=== PATIENT | male | born 1995 | race Caucasian/White ===

== ENCOUNTER 2019-03-12 13:56 | Emergency (ER) | payer OTHER, BC ==
[~2019-03-12] VITALS: Ht 187.9 cm; Wt 58.4 kg
--- NOTE | 2019-03-12 14:37 | Diagnostic Imaging Report ---
PROCEDURE: CT abdomen and pelvis without contrast. TECHNIQUE: Multiple contiguous axial images were obtained through the abdomen and pelvis without the use of intravenous contrast. Auto Exposure Controls were utilized during the CT exam to meet ALARA standards for radiation dose reduction. INDICATION: Bilateral flank pain, worse on the left as well as hematuria. COMPARISON: No prior studies are available for comparison. FINDINGS: The lung bases are clear. Liver and gallbladder are unremarkable. No biliary ductal dilatation is seen. The pancreas and spleen are unremarkable. No adrenal mass is detected. No renal calculi are seen. No significant hydronephrosis is identified. No definite ureteral or bladder calculi are identified. Calcification in the left pelvis likely represents a phlebolith. Aorta is non-aneurysmal. Small and large bowel loops are normal in caliber. There is no obstruction. There is no free fluid or fluid collection. Bony structures are nonacute. Appendix is difficult to visualize, but no inflammatory changes in the right lower quadrant are identified. IMPRESSION: 1. No evidence of urinary tract calculi or obstruction. 2. No definite CT evidence of acute appendicitis. Dictated by: Dictated on workstation # [id number]
[2019-03-12] MEDS ORDERED: NS IV 1000 ML 1,000 ML IV SCH (14:45)
[2019-03-12] MEDS ORDERED: KETOROLAC 30 MG/ML VIAL IVP ONE (14:45)
[2019-03-12] MEDS ORDERED: ONDANSETRON 4 MG/2 ML (SDV) Z0FRAN IVP ONE (14:45)
[2019-03-12 14:50] LABS: BASOPHILS % (AUTO) 0 % (0-10); EOSINOPHILS # (AUTO) 0.1 10^3/uL (0.0-0.3); EOSINOPHILS % (AUTO) 1 % (0-10); HEMATOCRIT 46 % (40-54); HEMOGLOBIN 15.8 G/DL (13.3-17.7); LYMPHOCYTES # (AUTO) 2.4 X 10^3 (1.0-4.0); LYMPHOCYTES % (AUTO) 27 % (12-44); MEAN CORPUSCULAR HEMOGLOBIN 30 PG (25-34); MEAN CORPUSCULAR HGB CONC 34 G/DL (32-36); MEAN CORPUSCULAR VOLUME 88 FL (80-99); MEAN PLATELET VOLUME 10.2 FL (7.4-10.4); MONOCYTES # (AUTO) 0.9 X 10^3 (0.0-1.0); MONOCYTES % (AUTO) 11 % (0-12); NEUTROPHILS # (AUTO) 5.3 X 10^3 (1.8-7.8); NEUTROPHILS % (AUTO) 61 % (42-75); PLATELET COUNT 268 10^3/uL (130-400); RED CELL DISTRIBUTION WIDTH 13.1 % (10.0-14.5); WHITE BLOOD COUNT 8.7 10^3/uL (4.3-11.0)
[2019-03-12 14:53] LABS: BILIRUBIN,URINE NEGATIVE (NEGATIVE); CLARITY,URINE CLEAR; COLOR,URINE YELLOW; GLUCOSE, URINE (UA) NEGATIVE (NEGATIVE); KETONES,URINE NEGATIVE (NEGATIVE); LEUKOCYTE ESTERASE ,URINE NEGATIVE (NEGATIVE); NITRITE,URINE NEGATIVE (NEGATIVE); PROTEIN,URINE NEGATIVE (NEGATIVE)
--- NOTE | 2019-03-12 14:53 | ED GI ---
General Chief Complaint: - Urinary Stated Complaint: HEMATURIA; MATHEUS FLANK PAIN Nursing Triage Note: Patient reports he has a history of kidney stones, states he passed several this morning, reports he now has blood in his urine. Reports back pain for 2 weeks. Sepsis Screen: No Definite Risk Source of Information: Patient Exam Limitations: No Limitations History of Present Illness Date Seen by Provider: Mar 12, 2019 Time Seen by Provider: 14:30 Initial Comments The patient is a pleasant 23-year-old male who presents for evaluation of bilat eral lower back pain as well as gross hematuria. He states that his pain has been present for the last 2 weeks or so. He states that he has had several kidney stones in the past that this feels the same. He denies fevers or chills, vomiting, chest pain or shortness of breath, penile or testicular pain, recent trauma, dizziness or syncope. He is alert and oriented 4, calm, and appears to be in no distress this time. Timing/Duration: Other (2 weeks, worse today) Severity/Quality: Moderate Location: Flank Radiation: No Radiation Activities at Onset: None Associated Symptoms: No Fever/Chills; Nausea/Vomiting (nausea only) Allergies and Home Medications Allergies Coded Allergies: No Known Drug Allergies (Unverified , 03/12/19) Patient Home Medication List Home Medication List Reviewed: Yes Review of Systems Review of Systems Constitutional: no symptoms reported EENTM: No Symptoms Reported Respiratory: No Symptoms Reported Cardiovascular: No Symptoms Reported Gastrointestinal: Abdominal Pain, Nausea Genitourinary: Flank Pain, Hematuria Musculoskeletal: no symptoms reported Skin: no symptoms reported Psychiatric/Neurological: No Symptoms Reported Endocrine: No Symptoms Reported Hematologic/Lymphatic: No Symptoms Reported All Other Systems Reviewed Negative Unless Noted: Yes Past Mxghwlb-Jqynod-Sgxebo Hx Past Med/Social Hx: Reviewed Nursing Past Med/Soc Hx Patient Social History Alcohol Use: Denies Use Recreational Drug Use: No Smoking Status: Never a Smoker 2nd Hand Smoke Exposure: No Recent Foreign Travel: No Contact w/Someone Who Travel: No Recent Infectious Disease Expo: No Recent Hopitalizations: No Physical Abuse: No Sexual Abuse: No Mistreated: No Fear: No Seasonal Allergies Seasonal Allergies: No Past Medical History Surgeries: Yes Orthopedic Respiratory: No Cardiac: No Neurological: No Genitourinary: Yes Kidney Stones Gastrointestinal: No Musculoskeletal: No Endocrine: No HEENT: No Cancer: No Psychosocial: No Integumentary: No Physical Exam Vital Signs Vital Signs - First Documented 03/12/19 14:10 Temp 37.4 Pulse 64 Resp 14 B/P (MAP) 144/89 (107) Pulse Ox 99 O2 Delivery Room Air Capillary Refill : Less Than 3 Seconds Height/Weight/BMI Height: '" Weight: lbs. oz. kg; 16.00 BMI Method: General Appearance: WD/WN, no apparent distress HEENT: PERRL/EOMI, TMs normal Neck: non-tender, full range of motion, supple Respiratory: chest non-tender, lungs clear, normal breath sounds, no respiratory distress, no accessory muscle use Cardiovascular: regular rate, rhythm, no edema, no JVD Gastrointestinal: normal bowel sounds, non tender, soft Extremities: normal range of motion, non-tender, no pedal edema Back: normal inspection, no vertebral tenderness, CVA tenderness (R), CVA tenderness (L) Neurologic/Psychiatric: [place] II-XII nml as tested, no motor/sensory deficits, alert, normal mood/affect, oriented x 3 Skin: normal color, warm/dry Progress/Results/Core Measures Results/Orders Lab Results Laboratory Tests Test 03/12/19 14:10 03/12/19 14:28 Range/Units Urine Color YELLOW Urine Clarity CLEAR Urine pH 7.0 5-9 Urine Specific [place] 1.020 1.016-1.022 Urine Protein NEGATIVE NEGATIVE Urine Glucose (UA) NEGATIVE NEGATIVE Urine Ketones NEGATIVE NEGATIVE Urine Nitrite NEGATIVE NEGATIVE Urine Bilirubin NEGATIVE NEGATIVE Urine Urobilinogen 0.2 < = 1.0 MG/DL Urine Leukocyte Esterase NEGATIVE NEGATIVE Urine RBC (Auto) NEGATIVE NEGATIVE Urine RBC NONE /HPF Urine WBC NONE /HPF Urine Squamous Epithelial Cells RARE /HPF Urine Crystals NONE /LPF Urine Bacteria NEGATIVE /HPF Urine Casts NONE /LPF Urine Mucus NONE /LPF Urine Culture Indicated NO White Blood Count 8.7 4.3-11.0 10^3/uL Red Blood Count 5.26 4.35-5.85 10^6/uL Hemoglobin 15.8 13.3-17.7 G/DL Hematocrit 46 40-54 % Mean Corpuscular Volume 88 80-99 FL Mean Corpuscular Hemoglobin 30 25-34 PG Mean Corpuscular Hemoglobin Concent 34 32-36 G/DL Red Cell Distribution Width 13.1 10.0-14.5 % Platelet Count 268 130-400 10^3/uL Mean Platelet Volume 10.2 7.4-10.4 FL Neutrophils (%) (Auto) 61 42-75 % Lymphocytes (%) (Auto) 27 12-44 % Monocytes (%) (Auto) 11 0-12 % Eosinophils (%) (Auto) 1 0-10 % Basophils (%) (Auto) 0 0-10 % Neutrophils # (Auto) 5.3 1.8-7.8 X 10^3 Lymphocytes # (Auto) 2.4 1.0-4.0 X 10^3 Monocytes # (Auto) 0.9 0.0-1.0 X 10^3 Eosinophils # (Auto) 0.1 0.0-0.3 10^3/uL Basophils # (Auto) 0.0 0.0-0.1 10^3/uL Sodium Level 141 135-145 MMOL/L Potassium Level 3.7 3.6-5.0 MMOL/L Chloride Level 103 98-107 MMOL/L Carbon Dioxide Level 24 21-32 MMOL/L Anion Gap 14 5-14 MMOL/L Blood Urea Nitrogen 7 7-18 MG/DL Creatinine 0.80 0.60-1.30 MG/DL Estimat Glomerular Filtration Rate > 60 BUN/Creatinine Ratio 9 Glucose Level 87 70-105 MG/DL Calcium Level 9.8 8.5-10.1 MG/DL Corrected Calcium 8.5-10.1 MG/DL Total Bilirubin 0.6 0.1-1.0 MG/DL Aspartate Amino Transf (AST/SGOT) 19 5-34 U/L Alanine Aminotransferase (ALT/SGPT) 16 0-55 U/L Alkaline Phosphatase 89 40-136 U/L Total Protein 7.5 6.4-8.2 GM/DL Albumin 4.8 H 3.2-4.5 GM/DL My Orders Orders - LILLI MORALES DO Comprehensive Metabolic Panel (03/12/19 14:12) Ua Culture If Indicated (03/12/19 14:12) Ed Iv/Invasive Line Start (03/12/19 14:12) Cbc With Automated Diff (03/12/19 14:12) Ct Abdomen/Pelvis Wo (03/12/19 14:12) Ns Iv 1000 Ml (Sodium Chloride 0.9%) (03/12/19 14:45) Ondansetron Injection (Zofran Injectio (03/12/19 14:45) Ketorolac Injection (Toradol Injection) (03/12/19 14:45) Medications Given in ED Current Medications Medications Dose Ordered Sig/Saman Route Start Time Stop Time Status Last Admin Dose Admin Ketorolac Tromethamine 30 mg ONCE ONCE IVP 03/12/19 14:45 03/12/19 14:46 DC 03/12/19 14:57 30 MG Ondansetron HCl 4 mg ONCE ONCE IVP 03/12/19 14:45 03/12/19 14:46 DC 03/12/19 14:57 4 MG Vital Signs/I&O 03/12/19 14:10 Temp 37.4 Pulse 64 Resp 14 B/P (MAP) 144/89 (107) Pulse Ox 99 O2 Delivery Room Air Blood Pressure Mean: 107 Progress Progress Note : Progress Note @1530 - patient updated on lab and imaging results which are acutely unremarkable. It is most likely of the patient had a kidney stone which he completely passed. Workup today fails reveal any emergent pathology. The patient states that he is feeling much better and is asking to go home. Advised the patient to follow up with his PCP in the next 1-2 days and to return to the Emergency Department immediately for new or worsening symptoms. He expresses verbal understanding and agreement with the plan. Diagnostic Imaging Diagonstic Imaging: CT Comments [facility], [place] NAME: ANITA HEMPHILL Kenn [facility] REC#: [id number] PT STATUS: REG ER : 1995 PHYSICIAN: LILLI MORALES DO ADMIT DATE: 03/12/19/ER FS Draft Date of Exam:03/12/19 CT ABDOMEN/PELVIS WO PROCEDURE: CT abdomen and pelvis without contrast. TECHNIQUE: Multiple contiguous axial images were obtained through the abdomen and pelvis without the use of intravenous contrast. Auto Exposure Controls were utilized during the CT exam to meet ALARA standards for radiation dose reduction. INDICATION: Bilateral flank pain, worse on the left as well as hematuria. COMPARISON: No prior studies are available for comparison. FINDINGS: The lung bases are clear. Liver and gallbladder are unremarkable. No biliary ductal dilatation is seen. The pancreas and spleen are unremarkable. No adrenal mass is detected. No renal calculi are seen. No significant hydronephrosis is identified. No definite ureteral or bladder calculi are identified. Calcification in the left pelvis likely represents a phlebolith. Aorta is non-aneurysmal. Small and large bowel loops are normal in caliber. There is no obstruction. There is no free fluid or fluid collection. Bony structures are nonacute. Appendix is difficult to visualize, but no inflammatory changes in the right lower quadrant are identified. IMPRESSION: 1. No evidence of urinary tract calculi or obstruction. 2. No definite CT evidence of acute appendicitis. Dictated on workstation # [id number] Dict: 03/12/19 1432 Trans: 03/12/19 1437 [id number] Interpreted by: BUTCH LEUNG MD Electronically signed by: Departure Impression Primary Impression: Kidney stone Additional Impression: Flank pain Disposition: 01 HOME, SELF-CARE Condition: Stable Departure-Patient Inst. Referrals: NO,LOCAL PHYSICIAN (PCP/Family) Primary Care Physician Patient Instructions: Flank Pain, Kidney Stone Diet, Kidney Stones (DC) Add. Discharge Instructions: Follow-up with your doctor in the next 1-2 days. Return to the emergency Department immediately for new or worsening symptoms. Take the prescribed medication for nausea as needed. Scripts Ondansetron (Ondansetron Odt) 4 Mg Tab.rapdis 4 MG PO Q6H PRN for NAUSEA/VOMITING-1ST LINE for 5 Days, #20 TAB Prov: LILLI MORALES DO 03/12/19 LILLI MORALES DO Mar 12, 2019 14:53
[2019-03-12 14:54] LABS: BACTERIA,URINE NEGATIVE /HPF; SQUAMOUS EPITHELIAL CELL,UR RARE /HPF
[2019-03-12 15:16] LABS: CARBON DIOXIDE 24 MMOL/L (21-32); CHLORIDE 103 MMOL/L (98-107); POTASSIUM 3.7 MMOL/L (3.6-5.0); SODIUM 141 MMOL/L (135-145)
[2019-03-12 15:17] LABS: ALANINE AMINOTRANSFERASE 16 U/L (0-55); ALBUMIN 4.8 GM/DL (3.2-4.5); ALKALINE PHOSPHATASE 89 U/L (40-136); BILIRUBIN,TOTAL 0.6 MG/DL (0.1-1.0); BUN/CREATININE RATIO 9; CALCIUM 9.8 MG/DL (8.5-10.1); GFR ESTIMATED > 60; GLUCOSE 87 MG/DL (70-105); TOTAL PROTEIN 7.5 GM/DL (6.4-8.2)
[2019-03-12] MEDS ORDERED: ONDA4TAB11 PO (15:36)
[2019-03-12 15:52] VITALS: BP 127/68
== END 2019-03-12 15:48 | disposition home or self-care (01) ==
LOC: ER FS 13:58
DX: N20.0 Calculus of kidney (principal)
CPT/HCPCS: 36415; 74176; 80053; 81000; 85025

== ENCOUNTER → 2019-03-18 | Outpatient (CLI) | payer OTHER, BC ==
[~2019-03-18] MED LIST: ONDA4TAB11 PO
--- NOTE | 2019-03-18 14:02 | Diagnostic Imaging Report ---
PROCEDURE: CT abdomen and pelvis without contrast. TECHNIQUE: Multiple contiguous axial images were obtained through the abdomen and pelvis without the use of intravenous contrast. Auto Exposure Controls were utilized during the CT exam to meet ALARA standards for radiation dose reduction. INDICATION: Left flank pain. Comparison made with prior examination from 03/12/2019. FINDINGS: The heart size is normal. The lung bases are clear. The liver is normal in size without focal lesions. Gallbladder is unremarkable. There is no biliary ductal dilatation. Spleen is normal. Pancreas and adrenal glands are unremarkable. Kidneys are normal in appearance. There is no evidence of obstructive uropathy. The aorta is nonaneurysmal. Bowel gas pattern is nonspecific. There is no free air. There is no ascites. There are no focal inflammatory changes. The osseous structures are unremarkable. IMPRESSION: Unremarkable noncontrast CT abdomen and pelvis. Dictated by: Dictated on workstation # [id number]
== END ==
LOC: RAD FS 12:43
PROVIDERS: ATTEND Nurse Practitioner Family
DX: R10.9 Unspecified abdominal pain (principal); Z87.442 Personal history of urinary calculi
CPT/HCPCS: 74176

== ENCOUNTER 2019-11-16 00:20 | Emergency (ER) | payer BC, OTHER ==
[2019-11-16] MEDS ORDERED: ONDANSETRON 4 MG (ZOFRAN) ORAL DISSOLVE TAB ONE (00:36)
[2019-11-16] MEDS ORDERED: HYDROcodone/APAP 5 MG/325 MG (LORTAB) TAB PO STA (00:37)
[2019-11-16] MEDS ORDERED: ONDANSETRON 4 MG (ZOFRAN) ORAL DISSOLVE TAB PO STA (00:37)
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
[2019-11-16] MEDS ORDERED: NS IV 1000 ML 1,000 ML IV STA (01:54)
[2019-11-16] MEDS ORDERED: ONDANSETRON 4 MG/2 ML (SDV) Z0FRAN IVP STA (02:06)
[2019-11-16] MEDS ORDERED: fentaNYL INJECTION 100 MCG/2 ML AMP IVP STA (02:06)
[2019-11-16 02:09] LABS: BASOPHILS % (AUTO) 0 % (0-10); EOSINOPHILS % (AUTO) 0 % (0-10); HEMATOCRIT 43 % (40-54); HEMOGLOBIN 15.3 G/DL (13.3-17.7); LYMPHOCYTES % (AUTO) 5 % (12-44); MEAN CORPUSCULAR HEMOGLOBIN 31 PG (25-34); MEAN CORPUSCULAR HGB CONC 36 G/DL (32-36); MEAN CORPUSCULAR VOLUME 86 FL (80-99); MEAN PLATELET VOLUME 10.1 FL (7.4-10.4); MONOCYTES % (AUTO) 5 % (0-12); NEUTROPHILS % (AUTO) 89 % (42-75); PLATELET COUNT 284 10^3/uL (130-400); WHITE BLOOD COUNT 24.4 10^3/uL (4.3-11.0)
[2019-11-16 02:15] LABS: PROTHROMBIN TIME PATIENT 13.8 SEC (12.2-14.7)
[2019-11-16 02:23] LABS: ALANINE AMINOTRANSFERASE 19 U/L (0-55); ALBUMIN 4.9 GM/DL (3.2-4.5); ALKALINE PHOSPHATASE 74 U/L (40-136); BILIRUBIN,TOTAL 0.6 MG/DL (0.1-1.0); BUN/CREATININE RATIO 12; CALCIUM 9.8 MG/DL (8.5-10.1); CARBON DIOXIDE 24 MMOL/L (21-32); CHLORIDE 102 MMOL/L (98-107); CREATININE SERUM 0.76 MG/DL (0.60-1.30); GFR ESTIMATED > 60; GLUCOSE 111 MG/DL (70-105); POTASSIUM 4.2 MMOL/L (3.6-5.0); SODIUM 139 MMOL/L (135-145); TOTAL PROTEIN 7.5 GM/DL (6.4-8.2)
[2019-11-16 02:24] VITALS: BP 133/69
[2019-11-16 02:30] LABS: LYMPHOCYTES % (MANUAL) 11 %; MICROCYTOSIS MARKED; MONOCYTES % (MANUAL) 3 %; NEUTROPHILS % (MANUAL) 86 %; TOXIC GRANULATION/VACUOLAZATIO 4+
[2019-11-16 02:32] LABS: CLARITY,URINE CLEAR; COLOR,URINE STRAW
[2019-11-16 02:40] LABS: AMORPHOUS SEDIMENT,UR MOD AMOR PHOSPHATE /LPF; BACTERIA,URINE NEGATIVE /HPF; BILIRUBIN,URINE NEGATIVE (NEGATIVE); GLUCOSE, URINE (UA) NEGATIVE (NEGATIVE); KETONES,URINE NEGATIVE (NEGATIVE); LEUKOCYTE ESTERASE ,URINE NEGATIVE (NEGATIVE); NITRITE,URINE NEGATIVE (NEGATIVE); PROTEIN,URINE NEGATIVE (NEGATIVE)
[2019-11-16 02:41] LABS: AMPHETAMINE SCREEN, URINE NEGATIVE (NEGATIVE); BARBITURATE SCREEN URINE NEGATIVE (NEGATIVE); BENZODIAZEPINES SCREEN URINE NEGATIVE (NEGATIVE); CANNABINOID SCREEN, URINE NEGATIVE (NEGATIVE); COCAINE SCREEN URINE NEGATIVE (NEGATIVE); METHADONE STAT NEGATIVE (NEGATIVE); METHAMPHETAMINE SCREEN URINE S NEGATIVE (NEGATIVE); OPIATE SCREEN URINE NEGATIVE (NEGATIVE); OXYCODONE STAT NEGATIVE (NEGATIVE); PROPOXYPHENE STAT NEGATIVE (NEGATIVE); TRICYCLIC ANTIDEPRESSANTS SCRE NEGATIVE (NEGATIVE)
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
[2019-11-16 10:04] LABS: LYMPHOCYTES # (AUTO) 1.3 X 10^3 (1.0-4.0); MONOCYTES # (AUTO) 1.2 X 10^3 (0.0-1.0); NEUTROPHILS # (AUTO) 21.8 X 10^3 (1.8-7.8)
== END 2019-11-16 02:46 | disposition short-term general hospital (02) ==
LOC: EDUNIT# 00:20 → ER FS 00:23
DX: S02.413A LeFort III fracture, initial encounter for closed fracture (principal); S02.85XA Fracture of orbit, unspecified, initial encounter for closed fracture; S00.83XA Contusion of other part of head, initial encounter; R40.2142 Coma scale, eyes open, spontaneous, at arrival to emergency department; R40.2252 Coma scale, best verbal response, oriented, at arrival to emergency department; R40.2362 Coma scale, best motor response, obeys commands, at arrival to emergency department; Z88.6 Allergy status to analgesic agent; Y09 Assault by unspecified means
CPT/HCPCS: 36415; 70450; 70486; 72125; 80053; 80306; 81000; 85007; 85027; 85610; 85730; 99284; G0480; 80320

== ENCOUNTER 2020-10-07 12:29 | Emergency (ER) | payer SELFPAY ==
[~2020-10-07] VITALS: Ht 182.9 cm; Wt 56.7 kg
--- OUTSIDE RECORDS SUMMARY | 2020-10-07 12:34 | XMS REPORT | Clinical Summary ---
Author Author [facility] Organization [facility] Address Unknown Phone Unavailable Care Team Providers Care Dispatcher Chief Coal Slurry Name Role Phone No Pcp, Na PCP Unavailable Source Comments Some departments are not documenting in the electronic medical record. If you d o not see the information that you expected, contact Release of Information in [facility] [employer] Information Management department at [phone] for further assistan ce in locating additional records.[facility] Allergies Not on File Medications Not on file Active Problems Not on file Social History Date Tobacco Use Types Packs/Day Years Used Never Assessed Sex Assigned at Date Recorded Not on file Last Filed Vital Signs Not on file Plan of Treatment Health Maintenance Due Date Last Done Comments HPV VACCINES (1 - Male 04/17/2007 2-dose series) HIV SCREENING 04/17/2011 DTAP/TDAP VACCINES (1 - 2014 Tdap) HEPATITIS C SCREENING 2014 PHYSICAL (COMPREHENSIVE) 2014 EXAM INFLUENZA VACCINE 11/06/2020 12/04/2009 Results Not on filefrom Last 3 Months Insurance Type Payer Benefit Subscriber ID Effective Phone Address Plan / Dates Group PPO BCBS [facility] [id number] 2015- PREF CARE Present BLUE [id number] 1 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
[2020-10-07] MEDS ORDERED: FAMOTIDINE 20MG/2ML IV (PEPCID) ONE (12:50)
--- NOTE | 2020-10-07 12:51 | ED GI ---
General Chief Complaint: Abdominal/GI Problems Stated Complaint: CHEST PAIN Source of Information: Patient Exam Limitations: No Limitations History of Present Illness Date Seen by Provider: Oct 07, 2020 Time Seen by Provider: 12:40 Initial Comments 25-year-old male presents with complaint of chest pain rating to his left arm intermittently for the past 11 months. Symptoms occur spontaneously without a precipitating event last 5 to 10 minutes and resolve on their own. Patient has not seen a doctor for this problem. Also states that he had approximately 20 pound weight loss last fall, has decreased appetite. He did see his PCP in January of last year and was started on blood pressure medication, he mentioned his chest pain but says nothing else was done. He does vape, denies drug use or alcohol use. No other significant past medical history, on no other medication other blood pressure medicine. He does complain of heartburn quite often. Denies Chest pain on arrival. Allergies and Home Medications Allergies Coded Allergies: ibuprofen (Verified Allergy, Unknown, 11/16/19) Home Medications Famotidine 20 Mg Tablet, 20 MG PO BID Prescribed by: RADHA BRIGGS on 10/07/20 1326 Ondansetron 4 Mg Tab.rapdis, 4 MG PO Q6H PRN for NAUSEA/VOMITING-1ST LINE Prescribed by: LILLI MORALES on 03/12/19 1536 Patient Home Medication List Home Medication List Reviewed: Yes Review of Systems Review of Systems Constitutional: No chills, No fever, No malaise, No weakness; weight loss Respiratory: Denies Cough, Denies Shortness of Air Cardiovascular: Chest Pain (intermittent for 11 months); Denies Edema, Denies Lightheadedness, Denies Palpitations Gastrointestinal: Abdominal Pain (often has indigestion and heart burn); Denies Constipated, Denies Diarrhea; Nausea, Poor Appetite; Denies Poor Fluid Intake; Vomiting Genitourinary: No Symptoms Reported Musculoskeletal: No back pain, No joint pain Skin: No change in color, No rash Psychiatric/Neurological: Denies Numbness, Denies Paresthesia, Denies Seizure, Denies Weakness Past Nrlhkkp-Bzqxnj-Hglzyx Hx Patient Social History Tobacco Use?: No Use of E-Cig and/or Vaping dev: Yes Alcohol Use?: No Seasonal Allergies Seasonal Allergies: No Past Medical History Surgeries: Yes Orthopedic Respiratory: No Cardiac: No Neurological: No Genitourinary: Yes Kidney Stones Gastrointestinal: No Musculoskeletal: No Endocrine: No HEENT: No Cancer: No Psychosocial: No Integumentary: No Physical Exam Vital Signs Vital Signs - First Documented 10/07/20 12:40 Temp 35.5 Pulse 84 Resp 26 B/P (MAP) 161/77 (105) Pulse Ox 95 O2 Delivery Room Air Capillary Refill : Height/Weight/BMI Height: '" Weight: lbs. oz. kg; 16.00 BMI Method: General Appearance: WD/WN, no apparent distress, thin HEENT: PERRL/EOMI, normal ENT inspection Neck: non-tender, supple Respiratory: chest non-tender, lungs clear, normal breath sounds, no respiratory distress, no accessory muscle use Cardiovascular: regular rate, rhythm, no edema, no gallop, no JVD, no murmur Gastrointestinal: normal bowel sounds, non tender, soft, no organomegaly, no pulsatile mass Extremities: normal range of motion, non-tender, no pedal edema Back: normal inspection, no CVA tenderness, no vertebral tenderness Neurologic/Psychiatric: no motor/sensory deficits, alert, normal mood/affect, oriented x 3 Skin: normal color, warm/dry Progress/Results/Core Measures Results/Orders Lab Results Laboratory Tests Test 10/07/20 12:35 10/07/20 12:51 Range/Units White Blood Count 8.7 4.3-11.0 10^3/uL Red Blood Count 5.39 4.30-5.52 10^6/uL Hemoglobin 16.0 13.3-17.7 g/dL Hematocrit 47 40-54 % Mean Corpuscular Volume 87 80-99 fL Mean Corpuscular Hemoglobin 30 25-34 pg Mean Corpuscular Hemoglobin Concent 34 32-36 g/dL Red Cell Distribution Width 12.7 10.0-14.5 % Platelet Count 291 130-400 10^3/uL Mean Platelet Volume 10.2 9.0-12.2 fL Immature Granulocyte % (Auto) 0 % Neutrophils (%) (Auto) 66 42-75 % Lymphocytes (%) (Auto) 21 12-44 % Monocytes (%) (Auto) 12 0-12 % Eosinophils (%) (Auto) 0 0-10 % Basophils (%) (Auto) 0 0-10 % Neutrophils # (Auto) 5.7 1.8-7.8 X 10^3 Lymphocytes # (Auto) 1.9 1.0-4.0 X 10^3 Monocytes # (Auto) 1.0 0.0-1.0 X 10^3 Eosinophils # (Auto) 0.0 0.0-0.3 10^3/uL Basophils # (Auto) 0.0 0.0-0.1 10^3/uL Immature Granulocyte # (Auto) 0.0 0.0-0.1 10^3/uL Sodium Level 139 135-145 MMOL/L Potassium Level 4.3 3.6-5.0 MMOL/L Chloride Level 101 98-107 MMOL/L Carbon Dioxide Level 24 21-32 MMOL/L Anion Gap 14 5-14 MMOL/L Blood Urea Nitrogen 10 7-18 MG/DL Creatinine 0.89 0.60-1.30 MG/DL Estimat Glomerular Filtration Rate 105 BUN/Creatinine Ratio 11 Glucose Level 115 H 70-105 MG/DL Calcium Level 9.9 8.5-10.1 MG/DL Corrected Calcium 8.5-10.1 MG/DL Total Bilirubin 1.0 0.1-1.0 MG/DL Aspartate Amino Transf (AST/SGOT) 24 5-34 U/L Alanine Aminotransferase (ALT/SGPT) 23 0-55 U/L Alkaline Phosphatase 87 40-136 U/L Troponin I < 0.30 <0.30 NG/ML Total Protein 8.0 6.4-8.2 GM/DL Albumin 5.1 H 3.2-4.5 GM/DL Urine Color YELLOW Urine Clarity CLEAR Urine pH 7.5 5-9 Urine Specific [place] 1.010 L 1.016-1.022 Urine Protein NEGATIVE NEGATIVE Urine Glucose (UA) NEGATIVE NEGATIVE Urine Ketones NEGATIVE NEGATIVE Urine Nitrite NEGATIVE NEGATIVE Urine Bilirubin NEGATIVE NEGATIVE Urine Urobilinogen 0.2 < = 1.0 MG/DL Urine Leukocyte Esterase NEGATIVE NEGATIVE Urine RBC (Auto) NEGATIVE NEGATIVE Urine RBC NONE /HPF Urine WBC RARE /HPF Urine Squamous Epithelial Cells RARE /HPF Urine Crystals NONE /LPF Urine Bacteria NEGATIVE /HPF Urine Casts NONE /LPF Urine Mucus NEGATIVE /LPF Urine Culture Indicated NO Urine Opiates Screen NEGATIVE NEGATIVE Urine Oxycodone Screen NEGATIVE NEGATIVE Urine Methadone Screen NEGATIVE NEGATIVE Urine Propoxyphene Screen NEGATIVE NEGATIVE Urine Barbiturates Screen NEGATIVE NEGATIVE Ur Tricyclic Antidepressants Screen NEGATIVE NEGATIVE Urine Phencyclidine Screen NEGATIVE NEGATIVE Urine Amphetamines Screen NEGATIVE NEGATIVE Urine Methamphetamines Screen NEGATIVE NEGATIVE Urine Benzodiazepines Screen NEGATIVE NEGATIVE Urine Cocaine Screen NEGATIVE NEGATIVE Urine Cannabinoids Screen POSITIVE H NEGATIVE My Orders Orders - RADHA BRIGGS DO Ed Iv/Invasive Line Start (10/07/20 12:46) Cbc With Automated Diff (10/07/20 12:46) Comprehensive Metabolic Panel (10/07/20 12:46) Troponin I Fs (10/07/20 12:46) Urinalysis (10/07/20 12:46) Drug Screen Stat (Urine) (10/07/20 12:46) Chest 1 View Ap/Pa Only (10/07/20 12:46) Ekg Tracing (10/07/20 12:46) Famotidine Injection (Pepcid Injection) (10/07/20 13:00) Famotidine Injection (Pepcid Injection) (10/07/20 12:50) Medications Given in ED Current Medications Medications Dose Ordered Sig/Saman Route Start Time Stop Time Status Last Admin Dose Admin Famotidine 20 mg ONCE ONCE IVP 10/07/20 13:00 10/07/20 13:12 DC 10/07/20 12:51 20 MG Vital Signs/I&O 10/07/20 10/07/20 12:40 13:39 Temp 35.5 Pulse 84 72 Resp 26 16 B/P (MAP) 161/77 (105) 159/83 Pulse Ox 95 98 O2 Delivery Room Air Room Air Initial ECG Impression Date: Oct 07, 2020 Initial ECG Impression Time: 12:35 Initial ECG Rate: 70 Initial ECG Rhythm: Normal Sinus Initial ECG Impression: Normal Initial ECG Comparisson: No Previous ECG Available Comment [facility] Diagnostic Imaging Diagonstic Imaging: Xray Plain Films/CT/US/NM/MRI: chest Comments COMPARISON: None. FINDINGS: Single frontal view of the chest demonstrates normal heart size and pulmonary vascularity. The lungs are well aerated and clear. No large pleural effusion or pneumothorax is seen. The visualized osseous structures show no acute abnormalities. IMPRESSION: 1. No acute cardiopulmonary process. Dictated on workstation # [id number] Dict: 10/07/20 1254 Trans: 10/07/20 1255 [id number] [id number] Interpreted by: ERNIE WALLACE MD Electronically signed by: Departure Impression Primary Impression: Hematemesis Qualified Codes: K92.0 - Hematemesis Additional Impressions: Chest pain Qualified Codes: R07.9 - Chest pain, unspecified Hypertension Qualified Codes: I10 - Essential (primary) hypertension Disposition: 01 HOME, SELF-CARE Condition: Stable Departure-Patient Inst. Decision time for Depature: 13:25 Referrals: ADOLPH ARTEAGA APRN (PCP) Primary Care Physician NO,LOCAL PHYSICIAN (Family) Primary Care Physician Patient Instructions: Peptic Ulcers (DC), High Blood Pressure ED Add. Discharge Instructions: Follow up with Kamron Arteaga in 2 weeks, sooner if worse All discharge instructions reviewed with patient and/or family. Voiced understanding. Scripts Famotidine (Pepcid) 20 Mg Tablet 20 MG PO BID, #60 TAB Prov: RADHA BRIGGS DO 10/07/20 RADHA BRIGGS DO Oct 07, 2020 12:51
--- NOTE | 2020-10-07 12:56 | Diagnostic Imaging Report ---
INDICATION: hematemesis, chest pain, weight loss COMPARISON: None. FINDINGS: Single frontal view of the chest demonstrates normal heart size and pulmonary vascularity. The lungs are well aerated and clear. No large pleural effusion or pneumothorax is seen. The visualized osseous structures show no acute abnormalities. IMPRESSION: 1. No acute cardiopulmonary process. Dictated by: Dictated on workstation # [id number]
[2020-10-07] MEDS ORDERED: FAMOTIDINE 20MG/2ML IV (PEPCID) IVP ONE (13:00)
[2020-10-07 13:01] LABS: EOSINOPHILS % (AUTO) 0 % (0-10); HEMATOCRIT 47 % (40-54); LYMPHOCYTES % (AUTO) 21 % (12-44); MEAN CORPUSCULAR HEMOGLOBIN 30 pg (25-34); MEAN CORPUSCULAR HGB CONC 34 g/dL (32-36); MEAN CORPUSCULAR VOLUME 87 fL (80-99); MEAN PLATELET VOLUME 10.2 fL (9.0-12.2); MONOCYTES % (AUTO) 12 % (0-12); NEUTROPHILS % (AUTO) 66 % (42-75); PLATELET COUNT 291 10^3/uL (130-400); WHITE BLOOD COUNT 8.7 10^3/uL (4.3-11.0)
[2020-10-07 13:02] LABS: BASOPHILS % (AUTO) 0 % (0-10); LYMPHOCYTES # (AUTO) 1.9 X 10^3 (1.0-4.0); NEUTROPHILS # (AUTO) 5.7 X 10^3 (1.8-7.8)
[2020-10-07 13:10] LABS: BACTERIA,URINE NEGATIVE /HPF; BILIRUBIN,URINE NEGATIVE (NEGATIVE); CLARITY,URINE CLEAR; COLOR,URINE YELLOW; GLUCOSE, URINE (UA) NEGATIVE (NEGATIVE); KETONES,URINE NEGATIVE (NEGATIVE); LEUKOCYTE ESTERASE ,URINE NEGATIVE (NEGATIVE); NITRITE,URINE NEGATIVE (NEGATIVE); PH,URINE 7.5 (5-9); PROTEIN,URINE NEGATIVE (NEGATIVE); SQUAMOUS EPITHELIAL CELL,UR RARE /HPF; WBC,URINE RARE /HPF
[2020-10-07 13:17] LABS: AMPHETAMINE SCREEN, URINE NEGATIVE (NEGATIVE); BARBITURATE SCREEN URINE NEGATIVE (NEGATIVE); BENZODIAZEPINES SCREEN URINE NEGATIVE (NEGATIVE); CANNABINOID SCREEN, URINE POSITIVE (NEGATIVE); COCAINE SCREEN URINE NEGATIVE (NEGATIVE); METHADONE STAT NEGATIVE (NEGATIVE); METHAMPHETAMINE SCREEN URINE S NEGATIVE (NEGATIVE); OPIATE SCREEN URINE NEGATIVE (NEGATIVE); OXYCODONE STAT NEGATIVE (NEGATIVE); PROPOXYPHENE STAT NEGATIVE (NEGATIVE); TRICYCLIC ANTIDEPRESSANTS SCRE NEGATIVE (NEGATIVE)
[2020-10-07 13:18] LABS: ALANINE AMINOTRANSFERASE 23 U/L (0-55); ALKALINE PHOSPHATASE 87 U/L (40-136); BUN/CREATININE RATIO 11; CALCIUM 9.9 MG/DL (8.5-10.1); CARBON DIOXIDE 24 MMOL/L (21-32); CHLORIDE 101 MMOL/L (98-107); CREATININE SERUM 0.89 MG/DL (0.60-1.30); GFR ESTIMATED 105; GLUCOSE 115 MG/DL (70-105); POTASSIUM 4.3 MMOL/L (3.6-5.0); SODIUM 139 MMOL/L (135-145)
[2020-10-07 13:19] LABS: ALBUMIN 5.1 GM/DL (3.2-4.5)
[2020-10-07] MEDS ORDERED: FAMO-119 PO (13:26)
[2020-10-07 13:39] VITALS: BP 159/83
== END 2020-10-07 13:39 | disposition home or self-care (01) ==
LOC: EDUNIT# 12:29 → ER FS 12:30
DX: K92.0 Hematemesis (principal); R07.9 Chest pain, unspecified; I10 Essential (primary) hypertension
CPT/HCPCS: 36415; 71045; 80053; 80306; 81000; 84484; 85025; 93005